=== PATIENT | female | born 1980 | race Caucasian/White ===

== ENCOUNTER → 2017-01-16 16:38 | Emergency (ER) | payer OTHER ==
[~2017-01-16 16:38] MED LIST: Sulfamethox/Trimethoprim DS 800/160* TAB PO ONE
[2017-01-16 16:54] VITALS: BP 97/68
--- NOTE | 2017-01-16 17:47 | ED ---
Amado Griffin Alfonso, scribed for Mamadou Combs MD on 01/16/17 at 1713 . Skin Complaint - HPI Summary HPI Summary: This patient is a 36 year old F presenting referred from [facility] urgent care to [facility] with a chief complaint of a skin infection at her back since one week ago , worse since yesterday. The patient rates the pain 3/10 in severity. Symptoms aggravated by transcutaneous electrical nerve stimulation. Symptoms alleviated by nothing. Patient denies fever. She reports occasional tobacco and marijuana use. - History of Current Complaint Chief Complaint: EDRashSkinAbscess Time Seen by Provider: 01/16/17 17:00 Stated Complaint: ABSCESS Hx Obtained From: Other: - referred from [facility] urgent care Onset/Duration: Started Weeks Ago - One week ago, Still Present, Worse Since - Yesterday Timing: Constant Onset Severity: Worse Since: - Yesterday Current Severity: Mild Pain Intensity: 3 Pain Scale Used: 0-10 Numeric Skin Location: Other: - back Character: Pain Aggravating Symptom(s): Other: - transcutaneous electrical nerve stimulation Alleviating Symptom(s): Nothing Associated Signs & Symptoms: Negative - Fever - Allergy/Home Medications Allergies/Adverse Reactions: Allergies Allergy/AdvReac Type Severity Reaction Status Date / Time No Known Allergies Allergy Verified 11/18/14 20:34 PMH/Surg Hx/FS Hx/Imm Hx Endocrine/Hematology History: Denies: Hx Diabetes Cardiovascular History: Denies: Hx Congestive Heart Failure, Hx Hypertension, Hx Pacemaker/ICD History: Denies: Hx Renal Disease Sensory History: Denies: Hx Hearing Aid Psychiatric History: Denies: Hx Panic Disorder Infectious Disease History: No Infectious Disease History: Denies: Traveled Outside the [place] in Last 30 Days - Family History Known Family History: Positive: Hypertension, Other - Cancer - Social History Alcohol Use: Occasionally Substance Use Type: Reports: Marijuana Smoking Status (MU): Current Some Day Smoker Type: Cigarettes Review of Systems Negative: Fever Positive: Other - skin infection at her back All Other Systems Reviewed And Are Negative: Yes Physical Exam Triage Information Reviewed: Yes Vital Signs On Initial Exam: Initial Vitals Temp Pulse Resp BP Pulse Ox 97.9 F 110 18 97/68 98 01/16/17 16:51 01/16/17 16:51 01/16/17 16:51 01/16/17 16:51 01/16/17 16:51 Vital Signs Reviewed: Yes Appearance: Positive: Well-Appearing, No Pain Distress Skin: Positive: Other - erythema about 3-4 inches in diameter left lower thoracic area with induration, and spontaneously draining abscess in 4 different areas from this area, no real fluctuance, but there is mostly induration. A total of about 3 CC of pus came out of the wound with very minimal effort. Eyes: Positive: EOMI ENT: Positive: Normal ENT inspection Neck: Positive: Nontender Respiratory/Lung Sounds: Positive: Clear to Auscultation, Breath Sounds Present Cardiovascular: Positive: RRR. Negative: Murmur Musculoskeletal: Positive: Strength/ROM Intact Neurological: Positive: Sensory/Motor Intact, Alert, Oriented to Person Place, Time, CN Intact II-III Psychiatric: Positive: Normal - [place] Coma Scale Best Eye Response: 4 - Spontaneous Best Motor Response: 6 - Obeys Commands Best Verbal Response: 5 - Oriented Diagnostics - Vital Signs Vital Signs Temp Pulse Resp BP Pulse Ox 01/16/17 16:51 97.9 F 110 18 97/68 98 - Laboratory Lab Statement: Any lab studies that have been ordered have been reviewed, and results considered in the medical decision making process. Course/Dx - Course Course Of Treatment: 36 yr old with a spontaneously draining abscess on her back. No significant flutuance but mostly induration. Would not benefit further by and I&D proceedure at this time as she is already draining out the abscess on her own, and no further pus express save the approximate 2-3 cc that came out very easily. - Diagnoses Provider Diagnoses: Abscess Discharge - Discharge Plan Condition: Good Disposition: HOME Prescriptions: Sulfamethox/Trimethoprim DS* [Bactrim DS 800/160 TAB*] 1 tab PO BID #20 tab Patient Education Materials: Abscess (ED) Referrals: Eddie Akins MD [Primary Care Provider] - 2 Days The documentation as recorded by the Amado patino Alfonso accurately reflects the service I personally performed and the decisions made by , Mamadou Combs MD.
== END | disposition home or self-care (01) ==
LOC: ED 16:38
DX: L02.91 Cutaneous abscess, unspecified (principal); Z72.0 Tobacco use
CPT/HCPCS: 90471; 99282; A9270-GY

== ENCOUNTER 2019-03-08 05:14 | Emergency (ER) | payer SELFPAY ==
--- NOTE | 2019-03-08 05:58 | ED ---
Nausea/Vomiting/Diarrhea HPI - HPI Summary HPI Summary: Pt. is a 38 y.o female who presents to the ER with concerns of intestinal worms. Pt. states that she has numerous cats that are currently being treated for round worm. Pt. is concerned she now has round worm has she has been having ongoing abd. pain, nausea and diarrhea. Pt. notes nasal congestion as well and believes when she blew her nose today a worm came out. No past medical hx. Apparently this issue has been going on for a few months and had a negative stool study. Sxs are mild in severity. No current modifying factors. - History of Current Complaint Chief Complaint: EDGeneral Stated Complaint: PT THINKS SHE HAS WORMS FROM CATS Time Seen by Provider: 03/08/19 05:36 Hx Obtained From: Patient Hx Last Menstrual Period: "A FEW DAYS AGO" Pain Intensity: 0 - Allergies/Home Medications Allergies/Adverse Reactions: Allergies Allergy/AdvReac Type Severity Reaction Status Date / Time No Known Allergies Allergy Verified 03/08/19 05:33 Home Medications: Home Medications NK [No Home Medications Reported] 03/08/19 [History Confirmed 03/08/19] PMH/Surg Hx/FS Hx/Imm Hx Previously Healthy: Yes Endocrine/Hematology History: Denies: Hx Diabetes Cardiovascular History: Denies: Hx Congestive Heart Failure, Hx Hypertension, Hx Pacemaker/ICD History: Denies: Hx Renal Disease Sensory History: Denies: Hx Hearing Aid Psychiatric History: Denies: Hx Panic Disorder - Immunization History Date of Tetanus Vaccine: unk Date of Influenza Vaccine: unk Infectious Disease History: No Infectious Disease History: Denies: Traveled Outside the [place] in Last 30 Days - Family History Known Family History: Positive: Hypertension, Other - Cancer - Social History Occupation: Unemployed Lives: With Family Alcohol Use: None Substance Use Type: Reports: None Substance Use Comment - Amount & Last Used: denies Smoking Status (MU): Never Smoked Tobacco Type: Cigarettes Review of Systems Constitutional: Negative Negative: Fever Positive: Nasal Discharge Cardiovascular: Negative Respiratory: Negative Positive: Abdominal Pain, Diarrhea, Nausea Genitourinary: Negative Musculoskeletal: Negative Skin: Negative Neurological: Negative All Other Systems Reviewed And Are Negative: Yes Physical Exam Triage Information Reviewed: Yes Vital Signs On Initial Exam: Initial Vitals Temp Pulse Resp BP Pulse Ox 98.6 F 82 20 124/78 100 03/08/19 05:16 03/08/19 05:16 03/08/19 05:16 03/08/19 05:16 03/08/19 05:16 Vital Signs Reviewed: Yes Appearance: Positive: Well-Appearing - Pt. sitting up in bed in NAD. Wearing heavy, smudged makeup. Skin: Positive: Warm, Dry Head/Face: Positive: Normal Head/Face Inspection Eyes: Positive: Normal, EOMI, ELIZABETH, Conjunctiva Clear ENT: Positive: Pharynx normal, TMs normal. Negative: Nasal congestion, Nasal drainage, Tonsillar swelling, Tonsillar exudate Neck: Positive: Supple Respiratory/Lung Sounds: Positive: Clear to Auscultation, Breath Sounds Present. Negative: Rales, Rhonchi, Wheezes Cardiovascular: Positive: Normal, RRR Abdomen Description: Positive: Nontender, Soft Neurological: Positive: Normal, CN Intact II-III Psychiatric: Positive: Affect/Mood Appropriate Procedures - Sedation Patient Received Moderate/Deep Sedation with Procedure: No Diagnostics - Vital Signs Vital Signs Temp Pulse Resp BP Pulse Ox 03/08/19 05:16 98.6 F 82 20 124/78 100 - Laboratory Lab Statement: Any lab studies that have been ordered have been reviewed, and results considered in the medical decision making process. Naus/Vom/Diarrhea Course/Dx - Course Course Of Treatment: Pt. presenting for evaluation of possible round worm infection. Pt. well appearing. Benign abd. exam without reproducible pain. Afebrile. Pt. states she believes she blew a worm out of her nose and brought the tissue with her. Examined tissue and there is a small amount of blood tinged clear mucus without any appreciable worm. Pt. unable to give stool sample in ED for O and P. Will dc home to [facility] with PCP today for outpt. stool sample and treatment if indicated. Will return for new or worsening sxs. Pt. understands and agrees with plan. - Differential Dx/Diagnosis Provider Diagnosis: Abdominal pain, Diarrhea Condition At Discharge: Good Discharge ED - Sign-Out/Discharge Documenting (check all that apply): Patient Departure - Discharge Plan Condition: Good Disposition: HOME Patient Education Materials: Acute Diarrhea (ED), Acute Abdominal Pain (ED) Referrals: Eddie Akins MD [Primary Care Provider] - Additional Instructions: Please call your PCP today for a close follow up appointment and for out patient stool culture for further evaluation Return to ER for severe abdominal pain, vomiting, fever, or if concerned - Billing Disposition and Condition Condition: GOOD Disposition: Home
[2019-03-08 06:57] VITALS: BP 0/0
== END 2019-03-08 06:56 | disposition home or self-care (01) ==
LOC: ED 05:14
DX: R10.9 Unspecified abdominal pain (principal); R19.7 Diarrhea, unspecified
CPT/HCPCS: 99282

== ENCOUNTER 2019-03-14 05:27 | Emergency (ER) | payer SELFPAY ==
--- NOTE | 2019-03-14 05:44 | ED ---
Complex/Multi-Sys Presentation - History Of Current Complaint Chief Complaint: EDGeneral Time Seen by Provider: 03/14/19 05:42 - Allergies/Home Medications Allergies/Adverse Reactions: Allergies Allergy/AdvReac Type Severity Reaction Status Date / Time No Known Allergies Allergy Verified 03/14/19 05:35 PMH/Surg Hx/FS Hx/Imm Hx Endocrine/Hematology History: Denies: Hx Diabetes Cardiovascular History: Denies: Hx Congestive Heart Failure, Hx Hypertension, Hx Pacemaker/ICD History: Denies: Hx Renal Disease Sensory History: Denies: Hx Hearing Aid Psychiatric History: Denies: Hx Panic Disorder - Immunization History Date of Tetanus Vaccine: unk Date of Influenza Vaccine: unk Infectious Disease History: No Infectious Disease History: Denies: Traveled Outside the [place] in Last 30 Days - Family History Known Family History: Positive: Hypertension, Other - Cancer - Social History Alcohol Use: None Substance Use Type: Reports: None Substance Use Comment - Amount & Last Used: denies Smoking Status (MU): Never Smoked Tobacco Type: Cigarettes Physical Exam Vital Signs On Initial Exam: Initial Vitals Temp Pulse Resp BP Pulse Ox 99.0 F 93 15 122/74 99 03/14/19 05:28 03/14/19 05:28 03/14/19 05:28 03/14/19 05:28 03/14/19 05:28 Diagnostics - Vital Signs Vital Signs Temp Pulse Resp BP Pulse Ox 03/14/19 05:28 99.0 F 93 15 122/74 99 - Laboratory Lab Statement: Any lab studies that have been ordered have been reviewed, and results considered in the medical decision making process. Discharge ED - Discharge Plan Referrals: Eddie Akins MD [Primary Care Provider] -
--- NOTE | 2019-03-14 06:07 | ED ---
Complex/Multi-Sys Presentation - HPI Summary HPI Summary: 38-year-old female presents to the emergency department today with chief complaint of "I think I have parasites in my nose". Patient states one of her cats had a Giardia infection and is worried she may have one as well. She states for the last week she has had symptoms of tingling in her "sinuses and ears". She states she states sure about parasites and is concerned she may have an infection. She denies fever, chest pain, shortness of breath, abdominal pain, pain with urination, confusion, headache, changes in vision, diarrhea, blood per rectum. - History Of Current Complaint Chief Complaint: EDGeneral Time Seen by Provider: 03/14/19 05:42 Hx Obtained From: Patient Onset/Duration: Gradual Onset, Lasting Weeks Timing: Constant Severity Currently: Mild Severity Initially: Mild Associated Signs And Symptoms: Negative: Decreased Responsiveness, Confusion, Agitation, Dizziness, Weakness, Syncope, Headache, SOB, Cough, Wheezing, Hemoptysis, Chest Pain, Palpitations, Edema, Nausea, Vomiting, Diarrhea, Abdominal Pain, Back Pain, Dysuria, Hematemesis, Melena, Decreased Oral Intake, Fever, Diaphoresis, Immunocompromised, Anticoagulation Therapy, Recent Medication Changes, Indwelling Right Of Way Supervisor - Allergies/Home Medications Allergies/Adverse Reactions: Allergies Allergy/AdvReac Type Severity Reaction Status Date / Time No Known Allergies Allergy Verified 03/14/19 05:35 PMH/Surg Hx/FS Hx/Imm Hx Endocrine/Hematology History: Denies: Hx Diabetes Cardiovascular History: Denies: Hx Congestive Heart Failure, Hx Hypertension, Hx Pacemaker/ICD History: Denies: Hx Renal Disease Sensory History: Denies: Hx Hearing Aid Psychiatric History: Denies: Hx Panic Disorder - Immunization History Date of Tetanus Vaccine: unk Date of Influenza Vaccine: unk Infectious Disease History: No Infectious Disease History: Denies: Traveled Outside the [place] in Last 30 Days - Family History Known Family History: Positive: Hypertension, Other - Cancer - Social History Alcohol Use: None Substance Use Type: Reports: None Substance Use Comment - Amount & Last Used: denies Smoking Status (MU): Never Smoked Tobacco Type: Cigarettes Review of Systems Constitutional: Negative Eyes: Negative ENT: Negative Cardiovascular: Negative Respiratory: Negative Gastrointestinal: Negative Genitourinary: Negative Musculoskeletal: Negative Skin: Negative Neurological: Negative Positive: Anxious All Other Systems Reviewed And Are Negative: Yes Physical Exam Triage Information Reviewed: Yes Vital Signs On Initial Exam: Initial Vitals Temp Pulse Resp BP Pulse Ox 99.0 F 93 15 122/74 99 03/14/19 05:28 03/14/19 05:28 03/14/19 05:28 03/14/19 05:28 03/14/19 05:28 Vital Signs Reviewed: Yes Appearance: Positive: Well-Appearing, No Pain Distress, Well-Nourished Skin: Positive: Warm, Skin Color Reflects Adequate Perfusion Head/Face: Positive: Normal Head/Face Inspection Eyes: Positive: EOMI, ELIZABETH ENT: Positive: Hearing grossly normal, Pharynx normal, TMs normal. Negative: Sinus tenderness Neck: Positive: Nontender Respiratory/Lung Sounds: Positive: Clear to Auscultation, Breath Sounds Present Cardiovascular: Positive: RRR, S1, S2 Abdomen Description: Positive: Nontender, Soft. Negative: Distended, Guarding Bowel Sounds: Positive: Absent - Normoactive bowel sounds Musculoskeletal: Positive: Normal Neurological: Positive: Sensory/Motor Intact, Alert, Oriented to Person Place, Time, Normal Gait, Facial Symmetry, Speech Normal. Negative: Slurred Speech Psychiatric: Positive: Anxious AVPU Assessment: Alert Procedures - Sedation Patient Received Moderate/Deep Sedation with Procedure: No Diagnostics - Vital Signs Vital Signs Temp Pulse Resp BP Pulse Ox 03/14/19 05:28 99.0 F 93 15 122/74 99 - Laboratory Lab Statement: Any lab studies that have been ordered have been reviewed, and results considered in the medical decision making process. Complex Multi-Symp Course/Dx Course Of Treatment: Patient was evaluated in the emergency department for possible parasitic infection. Patient was seen and examined. As the patient was asymptomatic it was determined no laboratory studies or imaging was required for further evaluation of the patient. 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 She was told to return to the emergency department immediately if she developed any signs or symptoms of Giardia infection including abdominal pain and diarrhea. She is told to follow up with her primary care provider if she desired further evaluation and management of her symptoms. Patient agreed to this plan. - Diagnoses Differential Diagnoses/HQI/PQRI: Other - Acute otitis media, perforated TM, Phobia Provider Diagnoses: Ear ache Discharge ED - Sign-Out/Discharge Documenting (check all that apply): Patient Departure - Discharge Plan Condition: Stable Disposition: HOME Referrals: Eddie Akins MD [Primary Care Provider] - 2 Days Additional Instructions: You were seen in the emergency department today with concern for parasitic infection. After physical exam was determined there were no parasites in your sinuses or inner ear. Symptoms of Giardia include abdominal pain and profuse diarrhea. Please return to emergency department immediately should you develop any new or worsening symptoms. If you have further concerns please follow up with your primary care doctor for further evaluation and management of your symptoms. - Billing Disposition and Condition Condition: STABLE Disposition: Home
[2019-03-14 06:29] VITALS: BP 0/0
== END 2019-03-14 06:27 | disposition home or self-care (01) ==
LOC: ED 05:27
DX: H92.09 Otalgia, unspecified ear (principal)
CPT/HCPCS: 99282

== ENCOUNTER 2019-03-18 15:53 | Emergency (ER) | payer SELFPAY ==
--- NOTE | 2019-03-18 16:28 | ED ---
Throat Pain/Nasal Congestion - HPI Summary HPI Summary: 38 year old female presents to the ED with a chief complaint of sinus discomfort for several weeks that has gradually gotten worse. Patient reports subjective fever, agitation, nausea, neck stiffness, head pressure, congestion, loss of appetite and rhinorrhea, all worsened in the last week. Patient has many cats at home. She also has history of allergies. She does a nasal drip daily using hot tap water. No history of DM. - History of Current Complaint Chief Complaint: EDGeneral Time Seen by Provider: 03/18/19 16:04 Hx Obtained From: Patient Onset/Duration: Lasting Weeks, Still Present Severity: Mild Associated Signs And Symptoms: Positive: Sinus Discomfort, Nasal Discharge Cough: None - Allergies/Home Medications Allergies/Adverse Reactions: Allergies Allergy/AdvReac Type Severity Reaction Status Date / Time No Known Allergies Allergy Verified 03/18/19 16:01 PMH/Surg Hx/FS Hx/Imm Hx Endocrine/Hematology History: Denies: Hx Diabetes Cardiovascular History: Denies: Hx Congestive Heart Failure, Hx Hypertension, Hx Pacemaker/ICD History: Denies: Hx Renal Disease Sensory History: Denies: Hx Hearing Aid Psychiatric History: Denies: Hx Panic Disorder - Immunization History Date of Tetanus Vaccine: unk Date of Influenza Vaccine: unk Infectious Disease History: No Infectious Disease History: Denies: Traveled Outside the [place] in Last 30 Days - Family History Known Family History: Positive: Hypertension, Other - Cancer - Social History Alcohol Use: None Substance Use Type: Reports: None Substance Use Comment - Amount & Last Used: denies Smoking Status (MU): Never Smoked Tobacco Type: Cigarettes Review of Systems Positive: Fever - Subjective, Other - loss of appetite Positive: Nasal Discharge, Other - sinus discomfort, congestion Positive: Nausea Positive: Myalgia - neck pain Positive: Headache - pressure Positive: Other - agitated All Other Systems Reviewed And Are Negative: Yes Physical Exam - Summary Physical Exam Summary: Constitutional: Well-developed, Well-nourished, Alert. (-) Distressed Skin: Warm, Dry HENT: Normocephalic; Atraumatic Eyes: Conjunctiva normal Neck: Musculoskeletal ROM normal neck. (-) JVD, (-) Stridor, (-) Tracheal deviation Cardio: Rhythm regular, rate normal, Heart sounds normal; Intact distal pulses; The pedal pulses are 2+ and symmetric. Radial pulses are 2+ and symmetric. (-) Murmur Pulmonary/Chest wall: Effort normal. (-) Respiratory distress, (-) Wheezes, (-) Rales Abd: Soft, (-) tenderness, (-) Distension, (-) Guarding, (-) Rebound Musculoskeletal: (-) Edema Lymph: (-) Cervical adenopathy Neuro: Alert, Oriented x3 Psych: Mood and affect Normal Triage Information Reviewed: Yes Vital Signs On Initial Exam: Initial Vitals Temp Pulse Resp BP Pulse Ox 99.1 F 81 17 147/66 100 03/18/19 15:54 03/18/19 15:54 03/18/19 15:54 03/18/19 15:54 03/18/19 15:54 Vital Signs Reviewed: Yes Procedures - Sedation Patient Received Moderate/Deep Sedation with Procedure: No Diagnostics - Vital Signs Vital Signs Temp Pulse Resp BP Pulse Ox 03/18/19 15:54 99.1 F 81 17 147/66 100 - Laboratory Result Diagrams: 03/18/19 16:37 03/18/19 16:37 Lab Statement: Any lab studies that have been ordered have been reviewed, and results considered in the medical decision making process. EENT Course/Dx - Course Course Of Treatment: 38 year old female presents to the ED with a chief complaint of sinus discomfort for several weeks that has gradually gotten worse. Patient reports subjective fever, agitation, nausea, neck stiffness, head pressure, congestion, loss of appetite and rhinorrhea, all worsened in the last week. Patient has many cats at home. She also has history of allergies. She does a nasal drip daily using hot tap water. No history of DM. Patient asks for a lumbar puncture because she thinks she is infected by an amoeba. I discussed with her the extremely low chance of that being the case. Physical exam is normal. Laboratory results reveal MCH 32 and potassium 3.4. Diagnosis is sinusitis. Patient is feeling better and will be discharged home, follow up with PCP within 3 days. Patient was told to return to the ED for new or worsened symptoms. Pt understands and agrees with this plan. - Diagnoses Provider Diagnoses: Sinusitis Discharge ED - Sign-Out/Discharge Documenting (check all that apply): Patient Departure - dc - Discharge Plan Condition: Stable Disposition: HOME Patient Education Materials: Sinusitis (ED) Referrals: Eddie Akins MD [Primary Care Provider] - Additional Instructions: Follow up with your primary care provider in 2-3 days. Return to the Emergency Department for new symptoms. - Attestation Statements Document Initiated by Caryl: Yes Documenting Scribe: Jacob Spann Provider For Whom Caryl is Documenting (Include Credential): Yuriy Harvey DO Scribe Attestation: IJacob, scribed for Yuriy Harvey DO on 03/18/19 at 1838. Status of Scribe Document: Ready
[2019-03-18 16:50] LABS: ABS Eosinophils 0.1 10^3/ul (0-0.6); ABS Lymphocytes 1.5 10^3/ul (1.0-4.8); ABS Monocytes 0.4 10^3/ul (0-0.8); ABS Neutrophils 4.9 10^3/ul (1.5-7.7); Eosinophil % 0.9 %; Hematocrit 39 % (35-47); Hemoglobin 13.8 g/dL (12.0-16.0); Lymphocyte % 22.1 %; Mean Corpuscular HGB Conc 35 g/dL (31-36); Mean Corpuscular Hemoglobin 32 pg (27-31); Mean Corpuscular Volume 90 fL (80-97); Mean Platelet Volume 8.1 fL (7.4-10.4); Platelet Count 242 10^3/uL (150-450); Red Blood Count 4.34 10^6 /uL (3.70-4.87); Red Cell Distribution Width 13 % (10-15); White Blood Count 6.9 10^3/uL (3.5-10.8)
[2019-03-18 17:05] LABS: Albumin 4.6 g/dL (3.2-5.2); Albumin/Globulin Ratio 1.8 (1-3); BUN/Creatinine Ratio 13.7 (8-20); CRP High Sensitivity 0.35 mg/L (<2.00); Calcium 9.9 mg/dL (8.6-10.3); EGFR African American 109.2 (>60); EGFR Non-African American 90.2 (>60); Globulin 2.5 g/dL (2-4); Potassium 3.4 mmol/L (3.5-5.0); Total Bilirubin 0.5 mg/dL (0.2-1.0); Total Protein 7.1 g/dL (6.4-8.9)
[2019-03-18 18:25] LABS: Erythrocyte Sed Rate 5 mm/Hr (0-19)
[2019-03-18 18:39] VITALS: BP 131/41
== END 2019-03-18 18:37 | disposition home or self-care (01) ==
LOC: ED 15:53
DX: J32.9 Chronic sinusitis, unspecified (principal)
CPT/HCPCS: 36415; 80053; 85025; 85652; 86141; 99282

== ENCOUNTER 2019-07-01 11:28 | Emergency (ER) | payer SELFPAY ==
--- OUTSIDE RECORDS SUMMARY | 2019-07-01 11:42 | XMS REPORT | Continuity of Care Document ---
:1980 External Reference #:[id number] Author Name Eddie Akins M.D. Address [address] [place] [address] Problems Description No Information Available Social History Type Date Description Comments Sex Unknown Tobacco Use Start: Unknown Never Smoked Cigarettes ETOH Use Rarely consumes alcohol Recreational Drug Use Denies Drug Use Recreational Drug Use Former Drug User Exercise Type/Frequency exercises sporadically Seat Belt/Car Seat always uses seat belt Allergies, Adverse Reactions, Alerts Description No Known Drug Allergies Medications Active Medications SIG Qnty Indications Ordering Provider Date Ventolin HFA 2 puffs every 4 1units Dora Lewis, 09/09/2013 hours as needed M.D., R.D. 108(90Base) mcg/Act Aerosol Vitamin B Complex Nasrin Gonsalves, 02/02/2012 [employer] PERSON-C Herbal Immunity Unknown Supplement Multi Vitamin 1 by mouth every Unknown Tablets day [place] 3 1 by mouth every Unknown 1000mg Capsules day History Medications Latuda 1 by mouth every 30tabs Eddie Akins, 05/26/2019 - 20mg Tablets night. M.D. 06/14/2019 Doxycycline 1 by mouth twice 11caps Eddie Akins, 04/12/2019 - Monohydrate a day for 5 1/2 M.D. 06/14/2019 100mg days (will Capsules replace 3 lost pills and add 4 days) Amoxicillin/Clavulan 1 by mouth twice 10tabs J32.9 Eddie Akins, 03/22/2019 - ate Potassium a day x 5 days M.D. 04/04/2019 875-125mg Tablets Amoxicillin/Clavulan 1 by mouth twice 10tabs S51.801A Eddie Akins, 2018 - ate Potassium a day 5 days M.D. 02/21/2019 875-125mg Tablets Medications Administered in Office Medication SIG Qnty Indications Ordering Provider Date TB,Intradermal (PPD, [place], 12/02/2002 [place]) [facility] Injection Pediatric Hepatitis B [place], 02/25/1999 Vaccine (11-19 Yrs) F.N.P.C[facility] Injection Pediatric Hepatitis B Christina Reed M.D. 12/12/1996 Vaccine (11-19 Yrs) Injection Immunizations CPT Code Status Date Vaccine Lot # 74937 Given 03/26/2017 Tdap (Adacel) [id number] 19867 Given 11/23/2000 Meningococcal Polysaccharide Vaccine 20188 Given 01/16/2000 Varicella (Chicken Pox) Vaccine 93155 Given 01/16/2000 Hep B Vaccine, Ped/Adol Dose 3 Dose (Engerix or Recombivax) 62840 Given 02/25/1999 MMR (Measles,Mumps,Rubella) 67944 Given 12/12/1996 DT (Adult) 10696 Given 03/27/1988 DPT 89364 Given 11/30/1987 DPT 83701 Given 10/15/1987 DPT 88547 Given 10/14/1987 Opv (Poliovirus,Oral) 34506 Given 11/16/1985 Opv (Poliovirus,Oral) 15354 Given 10/12/1985 MMR (Measles,Mumps,Rubella) 51003 Given 05/11/1985 Opv (Poliovirus,Oral) 53178 Given 07/29/1984 Opv (Poliovirus,Oral) 65024 Refused 04/26/2019 Influenza Virus Vaccine, Quadrivalent, 3 Yr > Quad , Preserv Free 60570 Refused 03/22/2019 Influenza Virus Vaccine, Quadrivalent, 3 Yr > Quad , Preserv Free 46365 Refused 06/23/2016 Influenza Virus Vaccine, Quadrivalent, 3 Yr > Quad , Preserv Free Vital Signs Date Vital Result Comment 06/14/2019 10:24am Weight 123.00 lb Weight 55.793 kg BP Systolic 110 mmHg BP Diastolic 60 mmHg Heart Rate 82 /min Body Temperature 98.4 F Respiratory Rate 16 /min O2 % BldC Oximetry 98 % 05/26/2019 4:40pm Weight 118.00 lb Weight 53.525 kg BP Systolic 108 mmHg BP Diastolic 68 mmHg Heart Rate 76 /min Body Temperature 98.9 F O2 % BldC Oximetry 98 % Results Test Acquired Date Facility Test Result H/L Range Note CBC Auto 03/18/2019 [facility] White Blood 6.9 10^3/ uL Normal 3.5-10.8 Diff [phone] Count Red Blood Count 4.34 10^6/uL Normal 3.70-4.87 Hemoglobin 13.8 g/dL Normal 12.0-16.0 Hematocrit 39 % Normal 35-47 Mean Corpuscular Volume 90 fL Normal 80-97 Mean Corpuscular Hemoglobin 32 pg High 27-31 Mean Corpuscular HGB Conc 35 g/dL Normal 31-36 Red Cell Distribution Width 13 % Normal 10-15 Platelet Count 242 10^3/uL Normal 150-450 Mean Platelet Volume 8.1 fL Normal 7.4-10.4 Abs Neutrophils 4.9 10^3/uL Normal 1.5-7.7 Abs Lymphocytes 1.5 10^3/uL Normal 1.0-4.8 Abs Monocytes 0.4 10^3/uL Normal 0-0.8 Abs Eosinophils 0.1 10^3/uL Normal 0-0.6 Abs Basophils 0.0 10^3/uL Normal 0-0.2 Abs Nucleated RBC 0.0 10^3/uL Granulocyte % 71.5 % Lymphocyte % 22.1 % Monocyte % 5.2 % Eosinophil % 0.9 % Basophil % 0.3 % Nucleated Red Blood Cells % 0.0 Laboratory test 03/18/2019 [facility] Erythrocyte Sed 5 mm/Hr Normal 0-19 finding [phone] Rate Comp Metabolic 03/18/2019 [facility] Sodium 138 Normal 135-145 Panel [phone] mmol/L Potassium 3.4 mmol/L Low 3.5-5.0 Chloride 103 mmol/L Normal 101-111 Co2 Carbon Dioxide 26 mmol/L Normal 22-32 Anion Gap 9 mmol/L Normal 2-11 Glucose 103 mg/dL High 70-100 Blood Urea Nitrogen 10 mg/dL Normal 6-24 Creatinine 0.73 mg/dL Normal 0.51-0.95 BUN/Creatinine Ratio 13.7 Normal 8-20 Calcium 9.9 mg/dL Normal 8.6-10.3 Total Protein 7.1 g/dL Normal 6.4-8.9 Albumin 4.6 g/dL Normal 3.2-5.2 Globulin 2.5 g/dL Normal 2-4 Albumin/Globulin Ratio 1.8 Normal 1-3 Total Bilirubin 0.50 mg/dL Normal 0.2-1.0 Alkaline Phosphatase 43 U/L Normal 34-104 Alt 16 U/L Normal 7-52 Ast 18 U/L Normal 13-39 Egfr Non- 90.2 >60 Egfr 109.2 >60 1 Laboratory test 03/18/2019 [facility] CRP High 0.35 mg/L <2.00 finding [phone] Sensitivity O P: 03/14/2019 [facility] O P: SEE RESULT 2 Giardia/Cryptos [phone] Giardia/Cryptosp BELOW por Screen or Screen Ova & Parasites 03/14/2019 [facility] Parasitic Exam, See Comment 3, 4 Full [phone] Result 1 Because ethnic data is not always readily available, this report includes an eGFR for both -Americans and non- Americans. The National Kidney Disease Education Program (NKDEP) does not endorse the use of the MDRD equation for patients that are not between the ages of 18 and 70, are , have extremes of body size, muscle mass, or nutritional status, or are non- or non-. According to the National Kidney Foundation, irrespective of diagnosis, the stage of the disease is based on the level of kidney function: Stage Description GFR(mL/min/1.73 m(2)) 1 Kidney damage with normal or decreased GFR 90 2 Kidney damage with mild decrease in GFR 60-89 3 Moderate decrease in GFR 30-59 4 Severe decrease in GFR 15-29 5 Kidney failure <15 (or dialysis) 2 SEE RESULT BELOW Name: MARYAM KAYE : [address]: Amie Miller NP Acct: [id number] Unit: [id number] AGE: 38 Location: [facility] Re03/14/19 SEX: F Status: REG REF SPEC: [id number] SANDEE: 03/14/[address]: Amie Miller NP REQ: [id number] RECD: 03/14/19 STATUS: YUDI STRONG DR: Eddie Akins MD _ SOURCE: STOOL SPDESC: ORDERED: O P: Giar/Crypt Procedure Result Reported Site O P: Giardia/Cryptospor Screen Final 03/15/19- 1202 ML Organism 1 Neg Cryptosporidium/Giardia Giardia and cryptosporidium antigen testing performed by enzyme immunoassay. Specimen has been forwarded to reference lab for microscopic parasite examination. TEST LIMITATIONS: As with all diagnostic procedures, the results obtained should be used in conjunction with other clinical information available to the physician, including confirmation by another method. Negative results can occur in samples containing antigen below lower limits of detection of the assay. One negative specimen does not rule out the possibility of a parasitic infection. To improve detection it is recommended that three specimens be collected on separate days over a period of not more than seven days. The use of colonic washes, aspirates or other diluted sample types has not been established and could affect the performance of the assay. Stool samples contaminated with an oily or particulate base (eg. Barium, mineral oil etc.) could interfere with the test and are not recommended. CONTINUED ON NEXT PAGE DEPARTMENT OF PATHOLOGY, [facility] [employer] [place] [address] Ovidio Gibson M.D. Director [facility] # [id number] Specimen: [id number] Collected: 03/14/19 Received: 03/14/19 (Continued) Procedure Result Reported Site O P: Giardia/Cryptospor Screen Final (continued) 03/15/191201 * ML - Main Lab . END OF REPORT DEPARTMENT OF PATHOLOGY, [facility] [employer] [place], [place] [address] Ovidio Gibson M.D. Director [facility] # [id number] 7 3518.LOOKING FOR NAGLERIA FOWLERI 4 SOURCE: STOOL PARASITIC EXAMINATION FINAL No parasites seen. Cryptosporidium, Cyclospora, and microsporidia are not readily detected by this method. Single negative specimen does not rule out parasitic infection. Test Performed by: [facility] - [address] [address] Sports Lawyer: Gee Mcclain M.D. Ph.D.; CLIA# [id number] Procedures Description No Information Available Medical Devices Description No Information Available Encounters Type Date Location Provider Dx Diagnosis Office Visit 05/12/2019 Main Office Eddie Akins M.D. J32.9 Chronic sinusitis, 11:45a unspecified Office Visit 04/26/2019 Bushra Akins M.D. J01.90 Acute sinusitis, 2:45p unspecified Office Visit 04/04/2019 Bushra Akins M.D. J32.9 Chronic sinusitis, 2:00p unspecified Office Visit 03/22/2019 Bushra Akins M.D. Z00.00 Encntr for general 1:15p adult medical exam w/o abnormal findings J32.9 Chronic sinusitis, unspecified Office Visit 02/21/2019 2:45p Ranger Tera Akins, S51.801D Unspecified open M.D. wound of right forearm, subs encntr S00.86xA Insect bite (nonvenomous) of other part of head, init encntr Office Visit 02/09/2019 3:45p Main Office Eddie Akins S51.801A Unspecified open M.D. wound of right forearm, initial encounter W55.03xA Scratched by cat, initial encounter Office Visit 01/27/2019 3:30p Main Office Eddie Akins M.D. H92.01 Otalgia , right ear Assessments Date Code Description Provider 06/14/2019 J32.9 Chronic sinusitis, marianne Akins M.D. 05/26/2019 J32.9 Chronic sinusitis, unspecified Eddie Akins M.D. 05/12/2019 J32.9 Chronic sinusitis, unspecified Eddie Akins M.D. 04/26/2019 J01.90 Acute sinusitis, marianne Akins M.D. 04/04/2019 J32.9 Chronic sinusitis, unspecified Eddie Akins M.D. 03/22/2019 Z00.00 Encounter for general adult medical examination Eddie Akins M.D. without abnormal findings 03/22/2019 J32.9 Chronic sinusitis, unspecified Eddie Akins M.D. 02/21/2019 S51.801D Unspecified open wound of right forearm, Eddie Akins M.D. subsequent encounter 02/21/2019 S00.86xA Insect bite (nonvenomous) of other part of head, Eddie Akins M.D. initial encounter 02/09/2019 S51.801A Unspecified open wound of right forearm, initial Eddie Akins M.D. encounter 02/09/2019 W55.03xA Scratched by cat, initial encounter Eddie Akins M.D. 01/27/2019 H92.01 Otalgia, right ear Eddie Akins M.D. Plan of Treatment 05/26/2019 - Eddie Akins M.D.J32.9 Chronic sinusitis, unspecifiedFollow up:3 weeks.Recommendations:The next steps: 1. Get on the waiting list at [facility] to see Clare Phan. 2. Get the medicaid application done. Functional Status Functional Condition Comment Date Status Soft Contacts Active Mental Status Description No Information Available Referrals Refer to Dr Reason for Referral Status Appt Date Luis Alfredo Holden Referral to Dr. Hodlen for further evaluation. Created - - Please contact Pt to schedule appt. Pt is currently self pay. - - Please fax appointment date/time to [facility], [phone]. [address], [facility] [place] [address] [phone]
--- OUTSIDE RECORDS SUMMARY | 2019-07-01 11:42 | XMS REPORT | Continuity of Care Document ---
:1980 External Reference #:[id number] Author Name Eddie Akins M.D. 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 Unknown Supplement Multi Vitamin 1 by mouth every Unknown Tablets day [place] 3 1 by mouth every Unknown 1000mg [...] CPT Code Status Date Vaccine Lot # [id number] Given 03/26/2017 Tdap (Adacel) [id number] 47414 Given 11/23/2000 Meningococcal Polysaccharide Vaccine 76918 Given 01/16/2000 Varicella (Chicken Pox) Vaccine 35351 Given 01/16/2000 Hep B Vaccine, Ped/Adol Dose 3 Dose (Engerix or Recombivax) 80715 Given 02/25/1999 MMR (Measles,Mumps,Rubella) 39262 Given 12/12/1996 DT (Adult) 56781 Given 03/27/1988 DPT 66928 Given 11/30/1987 DPT 27318 Given 10/15/1987 DPT 57965 Given 10/14/1987 Opv (Poliovirus,Oral) 61873 Given 11/16/1985 Opv (Poliovirus,Oral) 63183 Given 10/12/1985 MMR (Measles,Mumps,Rubella) 58737 Given 05/11/1985 Opv (Poliovirus,Oral) 67514 Given 07/29/1984 Opv (Poliovirus,Oral) 30912 Refused 04/26/2019 Influenza Virus Vaccine, Quadrivalent, 3 Yr > Quad , Preserv Free 91874 Refused 03/22/2019 Influenza Virus Vaccine, Quadrivalent, 3 Yr > Quad , Preserv Free 27626 Refused 06/23/2016 Influenza Virus Vaccine, Quadrivalent, 3 [...] Result H/L Range Note CBC Auto 03/18/2019 [facility] White Blood 6.9 10^3/ uL Normal 3.5-10.8 Diff [phone] Count Red Blood Count 4.34 10^6/uL Normal [...] Blood Cells % 0.0 Laboratory test 03/18/2019 [facility] Erythrocyte Sed 5 mm/Hr Normal 0-19 finding [phone] Rate Comp Metabolic 03/18/2019 [facility] Sodium 138 Normal 135-145 Panel [phone] mmol/L Potassium 3.4 mmol/L Low 3.5-5.0 Chloride [...] Egfr 109.2 >60 1 Laboratory test 03/18/2019 [facility] CRP High 0.35 mg/L <2.00 finding [phone] Sensitivity O P: 03/14/2019 [facility] O P: SEE RESULT 2 Giardia/Cryptos [phone] Giardia/Cryptosp BELOW por Screen or Screen Ova & Parasites 03/14/2019 [facility] Parasitic Exam, See Comment 3, 4 Full [phone] Result 1 Because ethnic data is not [...] [address]: Amie Miller NP Acct: [id number] Unit: [id number] AGE: 38 Location: [facility] Re03/14/19 SEX: F Status: REG REF SPEC: [id number] SANDEE: 03/14/[address]: Amie Miller NP REQ: [id number] RECD: 03/14/19 STATUS: YUDI STRONG DR: Eddie [...] ON NEXT PAGE DEPARTMENT OF PATHOLOGY, [facility] [employer] [place] [address] Ovidio Gibson M.D. Director [facility] # [id number] Specimen: [id number] Collected: 03/14/19 Received: 03/14/19 (Continued) Procedure Result Reported Site O P: Giardia/Cryptospor Screen Final (continued) 03/15/191201 * ML - Main Lab . END OF REPORT DEPARTMENT OF PATHOLOGY, [facility] [employer] [place], [place] [address] Ovidio Gibson M.D. Director [facility] # [id number] 7 7373.LOOKING FOR NAGLERIA FOWLERI 4 SOURCE: STOOL PARASITIC EXAMINATION FINAL No parasites seen. Cryptosporidium, Cyclospora, and microsporidia are not readily detected by this method. Single negative specimen does not rule out parasitic infection. Test Performed by: [facility] - [address] [address] [employer]: Gee Mcclain M.D. Ph.D.; CLIA# [id number] Procedures Description No Information Available Medical Devices [...] Chronic sinusitis, unspecified Office Visit 02/21/2019 2:45p Deport Tera Akins, S51.801D Unspecified open M.D. wound [...] ear Eddie Akins M.D. Plan of Treatment 06/14/2019 - Eddie Akins M.D.J32.9 Chronic sinusitis, unspecifiedComments:She has not started antipsychotic.Sx do seem better.She is starting abx through her dentist so we will hold on CT scanning. Functional Status Functional Condition Comment Date Status Soft Contacts Active Mental Status Description No Information Available Referrals Refer to Dr Reason for Referral Status Appt Date Luis Alfredo Holden Referral to Dr. Holden for further evaluation. Created - - Please contact Pt to schedule appt. Pt is currently self pay. - - Please fax appointment date/time to [facility], [phone]. [address], [place] [address] [phone]
--- OUTSIDE RECORDS SUMMARY | 2019-07-01 11:42 | XMS REPORT | Continuity of Care Document ---
:1980 External Reference #:[id number] Author Name Luis Alfredo Holden M.D. (transmitted by agent of provider Charlette Fermin ) Address [address] [place] [address] Care Team Providers Name Role Phone Eddie Akins M.D. 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 Problems Description No Information Available Social History Type Date Description Comments Sex Unknown Tobacco Use Start: Unknown End: Patient is a former smoker smoked x 2 months in Unknown 2016 Smoking Status Reviewed: 06/07/19 Patient is a former smoker smoked x 2 months in 2016 Allergies, Adverse Reactions, Alerts Description No Known Drug Allergies Medications Description No Active Medications Immunizations Description No Information Available Vital Signs Date Vital Result Comment 06/07/2019 1:16pm Height 63 inches 5'3" Weight 120.38 lb Heart Rate 92 /min BP Systolic Sitting 98 mmHg BP Diastolic Sitting 60 mmHg Respiratory Rate 14 /min Body Temperature 98.2 F O2 % BldC Oximetry 99 % BMI (Body Mass Index) 21.3 kg/m2 Results Description No Information Available Procedures Description No Information Available Medical Devices Description No Information Available Encounters Description No Information Available Assessments Date Code Description Provider 06/07/2019 Z11.4 Encounter for screening for human Luis Alfredo Holden M.D. immunodeficiency virus [HIV] Plan of Treatment No Information Available Functional Status Description No Information Available Mental Status Description No Information Available Referrals Description No Information Available
--- OUTSIDE RECORDS SUMMARY | 2019-07-01 11:42 | XMS REPORT | Continuity of Care Document ---
:1980 External Reference #:[id number] Author Name Eddie Akins M.D. (transmitted by agent of provider Salina Hill) Address [address] [place] [address] Problems Description No Information Available Social History [...] 1units Dora Lewis, 09/09/2013 hours as needed M.Timmy, R.DLuli 108(90Base) mcg/Act Aerosol Vitamin B Complex Nasrin Gonsalves, 02/02/2012 [employer] Herbal Immunity Unknown Supplement Multi Vitamin 1 by mouth every Unknown Tablets day [place] 3 1 by mouth every Unknown 1000mg Capsules day Amoxicillin/Clavulana Take One Tablet Unknown te Potassium By Mouth 875-125mg Immediately, Tablets Take 1 Tablet By Mouth Two Times Daily Until Gone History Medications Latuda 1 by mouth every [...] CPT Code Status Date Vaccine Lot # 26477 Given 03/26/2017 Tdap (Adacel) [id number] 93762 Given 11/23/2000 Meningococcal Polysaccharide Vaccine 96636 Given 01/16/2000 Varicella (Chicken Pox) Vaccine 54733 Given 01/16/2000 Hep B Vaccine, Ped/Adol Dose 3 Dose (Engerix or Recombivax) 55109 Given 02/25/1999 MMR (Measles,Mumps,Rubella) 87628 Given 12/12/1996 DT (Adult) 53251 Given 03/27/1988 DPT 79575 Given 11/30/1987 DPT 16190 Given 10/15/1987 DPT 74012 Given 10/14/1987 Opv (Poliovirus,Oral) 13789 Given 11/16/1985 Opv (Poliovirus,Oral) 11413 Given 10/12/1985 MMR (Measles,Mumps,Rubella) 91899 Given 05/11/1985 Opv (Poliovirus,Oral) 08299 Given 07/29/1984 Opv (Poliovirus,Oral) 29883 Refused 04/26/2019 Influenza Virus Vaccine, Quadrivalent, 3 Yr > Quad , Preserv Free 74074 Refused 03/22/2019 Influenza Virus Vaccine, Quadrivalent, 3 Yr > Quad , Preserv Free 42276 Refused 06/23/2016 Influenza Virus Vaccine, Quadrivalent, 3 Yr > Quad , Preserv Free Vital Signs Date Vital Result Comment 06/21/2019 2:58pm Weight 120.00 lb Weight 54.432 kg BP Systolic 100 mmHg BP Diastolic 60 mmHg Heart Rate 88 /min Body Temperature 98.3 F Respiratory Rate 16 /min O2 % BldC Oximetry 98 % 06/14/2019 10:24am Weight 123.00 lb Weight 55.793 kg BP Systolic 110 mmHg BP Diastolic 60 mmHg Heart Rate 82 /min Body Temperature 98.4 F Respiratory Rate 16 /min O2 % BldC Oximetry 98 % Results Test Acquired Date Facility Test Result H/L Range Note CBC Auto 03/18/2019 [facility] White Blood 6.9 10^3/ uL Normal 3.5-10.8 Diff [phone] Count Red Blood Count 4.34 10^6/uL Normal [...] Blood Cells % 0.0 Laboratory test 03/18/2019 [facility] Erythrocyte Sed 5 mm/Hr Normal 0-19 finding [phone] Rate Comp Metabolic 03/18/2019 [facility] Sodium 138 Normal 135-145 Panel [phone] mmol/L Potassium 3.4 mmol/L Low 3.5-5.0 Chloride [...] Egfr 109.2 >60 1 Laboratory test 03/18/2019 [facility] CRP High 0.35 mg/L <2.00 finding [phone] Sensitivity O P: 03/14/2019 [facility] O P: SEE RESULT 2 Giardia/Cryptos [phone] Giardia/Cryptosp BELOW por Screen or Screen Ova & Parasites 03/14/2019 [facility] Parasitic Exam, See Comment 3, 4 Full [phone] Result 1 Because ethnic data is not [...] 2 SEE RESULT BELOW Name: MARYAM KAYE Demetrius : [address]: Amie Miller 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 Director [facility] # [id number] Specimen: [id number] Collected: 03/14/19 Received: 03/14/19 (Continued) Procedure Result Reported Site O P: Giardia/Cryptospor Screen Final (continued) 03/15/191201 * [facility] - Main Lab . END OF REPORT DEPARTMENT OF PATHOLOGY, [facility] [place], [place] [address] Ovidio Gibson M.D. Director [place] # [id number] 3 5105.LOOKING FOR NAGLERIA FOWLERI 4 SOURCE: STOOL PARASITIC EXAMINATION FINAL No parasites seen. Cryptosporidium, Cyclospora, and microsporidia are not readily detected by this method. Single negative specimen does not rule out parasitic infection. Test Performed by: [place] [address] Medical Transcriber: Gee Mcclain M.D. Ph.D.; CLIA# [id number] Procedures Description No Information Available Medical Devices Description No Information Available Encounters Type Date Location Provider Dx Diagnosis Office Visit 06/14/2019 Bushra Akins M.D. J32.9 Chronic sinusitis, 10:00a unspecified Office Visit 05/26/2019 Main Office Eddie Akins M.D. J32.9 Chronic sinusitis, 4:15p unspecified Office Visit 05/12/2019 Main Office Eddie Akins M.D. J32.9 Chronic sinusitis, 11:45a unspecified Office Visit 04/26/2019 Bushra Akins M.D. J01.90 Acute sinusitis, 2:45p unspecified Office Visit 04/04/2019 Bushra Akins M.D. J32.9 Chronic sinusitis, 2:00p unspecified Office Visit 03/22/2019 Bsuhra Akins M.D. Z00.00 Encntr for general 1:15p adult medical exam w/o abnormal findings J32.9 Chronic sinusitis, unspecified Office Visit 02/21/2019 2:45p Bushra Akins S51.801D Unspecified open M.D. wound of right [...] right ear Assessments Date Code Description Provider 06/21/2019 J32.9 Chronic sinusitis, unspecified Eddie Akins M.D. 06/14/2019 J32.9 Chronic sinusitis, unspecified Eddie Akins M.D. 05/26/2019 J32.9 Chronic sinusitis, unspecified Eddie Akins M.D. 05/12/2019 J32.9 Chronic sinusitis, unspecified Eddie Akins M.D. 04/26/2019 J01.90 Acute sinusitis, unspecified Eddie Akins M.D. 04/04/2019 J32.9 Chronic sinusitis, unspecified [...] ear Eddie Akins M.D. Plan of Treatment 06/21/2019 - Eddie Akins M.D.J32.9 Chronic sinusitis, unspecifiedFollow up: Referral to [facility]. Functional Status Functional Condition Comment Date Status Soft Contacts Active Mental Status Description No Information Available Referrals Refer to Dr Reason for Referral Status Appt Date Luis Alfredo Holden Referral to Dr. Holden for further evaluation. Created - - Please contact Pt to schedule appt. Pt is currently self pay. - - Please fax appointment date/time to [facility], [phone]. [address], [place] [address] [phone]
--- OUTSIDE RECORDS SUMMARY | 2019-07-01 11:42 | XMS REPORT | Continuity of Care Document ---
:1980 External Reference #:[id number] Author Name Eddie Akins M.D. Address [address] [place] [address] Problems Description No Information Available Social History [...] Aerosol Vitamin B Complex Nasrin Gonsalves, 02/02/2012 JACKSPOOLER-C Herbal Immunity Unknown Supplement Multi Vitamin 1 by mouth every Unknown Tablets day [place] 3 1 by mouth every Unknown 1000mg [...] CPT Code Status Date Vaccine Lot # [id number] Given 03/26/2017 Tdap (Adacel) [id number] 96193 Given 11/23/2000 Meningococcal Polysaccharide Vaccine 09885 Given 01/16/2000 Varicella (Chicken Pox) Vaccine 53644 Given 01/16/2000 Hep B Vaccine, Ped/Adol Dose 3 Dose (Engerix or Recombivax) 05093 Given 02/25/1999 MMR (Measles,Mumps,Rubella) 39185 Given 12/12/1996 DT (Adult) 98044 Given 03/27/1988 DPT 02493 Given 11/30/1987 DPT 27259 Given 10/15/1987 DPT 96712 Given 10/14/1987 Opv (Poliovirus,Oral) 14071 Given 11/16/1985 Opv (Poliovirus,Oral) 90850 Given 10/12/1985 MMR (Measles,Mumps,Rubella) 50068 Given 05/11/1985 Opv (Poliovirus,Oral) 34789 Given 07/29/1984 Opv (Poliovirus,Oral) 08538 Refused 04/26/2019 Influenza Virus Vaccine, Quadrivalent, 3 Yr > Quad , Preserv Free 57252 Refused 03/22/2019 Influenza Virus Vaccine, Quadrivalent, 3 Yr > Quad , Preserv Free 90297 Refused 06/23/2016 Influenza Virus Vaccine, Quadrivalent, 3 [...] Result H/L Range Note CBC Auto 03/18/2019 [facility] White Blood 6.9 10^3/ uL Normal 3.5-10.8 Diff [phone] Count Red Blood Count 4.34 10^6/uL Normal [...] Blood Cells % 0.0 Laboratory test 03/18/2019 [facility] Erythrocyte Sed 5 mm/Hr Normal 0-19 finding [phone] Rate Comp Metabolic 03/18/2019 [facility] Sodium 138 Normal 135-145 Panel [phone] mmol/L Potassium 3.4 mmol/L Low 3.5-5.0 Chloride [...] Egfr 109.2 >60 1 Laboratory test 03/18/2019 [facility] CRP High 0.35 mg/L <2.00 finding [phone] Sensitivity O P: 03/14/2019 [facility] O P: SEE RESULT 2 Giardia/Cryptos [phone] Giardia/Cryptosp BELOW por Screen or Screen Ova & Parasites 03/14/2019 [facility] Parasitic Exam, See Comment 3, 4 Full [phone] Result 1 Because ethnic data is not [...] [address]: Amie Miller NP Acct: [id number] Unit: [id number] AGE: 38 Location: [facility] Re03/14/19 SEX: F Status: REG REF SPEC: [id number] SANDEE: 03/14/[address]: Amie Miller NP REQ: [id number] RECD: 03/14/19 STATUS: YUDI STRONG DR: Eddie [...] ON NEXT PAGE DEPARTMENT OF PATHOLOGY, [facility] [place] [address] Ovidio Gibson M.D. Director [facility] # [id number] Specimen: [id number] Collected: 03/14/19 Received: 03/14/19 (Continued) Procedure Result Reported Site O P: Giardia/Cryptospor Screen Final (continued) 03/15/191201 * ML - Main Lab . END OF REPORT DEPARTMENT OF PATHOLOGY, [facility] [address] [place], [place] [address] Ovidio Gibson M.D. Director [facility] # [id number] 7 1615.LOOKING FOR NAGLERIA FOWLERI 4 SOURCE: STOOL PARASITIC EXAMINATION FINAL No parasites seen. Cryptosporidium, Cyclospora, and microsporidia are not readily detected by this method. Single negative specimen does not rule out parasitic infection. Test Performed by: [facility] - [address] [address] Fire Behavior Analyst: Gee Mcclain M.D. Ph.D.; CLIA# [id number] Procedures Description No Information Available Medical Devices [...] Chronic sinusitis, unspecified Office Visit 02/21/2019 2:45p Thompson Tera Akins, S51.801D Unspecified open M.D. wound [...] right ear Assessments Date Code Description Provider 05/26/2019 J32.9 Chronic sinusitis, yanyified Eddie Akins M.D. 05/12/2019 J32.9 Chronic sinusitis, [...] Please fax appointment date/time to [facility], [phone]. [address], [place] [address] [phone]
--- NOTE | 2019-07-01 12:31 | ED ---
Complex/Multi-Sys Presentation - HPI Summary HPI Summary: This pt is a 38 Y/O F presenting to [facility] with a CC of a recent sinus infection that began on june 19 2019. She states that she has recently found legionella in her water and states that it has been tested and taking care of by the health department. She states that a small black parasite came out of her nose and reports that she needs a CT scan. She states that she blew her nose and the parasite came out of her nose. She reports that it came out of her R nostril. She states that she has been having nasal discharge and feeling fatigued and has had CP, SOB, a fever, and chills, for the past couple weeks. She reports holding an 8 pound weight for hours in order to prevent a syncopal episode. She denies any recent travel. She states that she has been around farm animals recently. She also reports that she had a recent tick bite on her chin. She also states that she has been having dental pain and can feel animals crawling around her ears and on her head. She also reports a delayed response due to the parasites. She denies any suicidal ideations or paranoia. Pt also denies any erythema of eyes, cough, abdominal pain, N/V, dysuria, hematuria, myalgia, edema ,rash, or dizziness. She states that she has been using vinegar on her head to avoid any more animals growing on her. She states that she has been doing anything to kill the parasites growing in her such as putting apple cider vinegar and peroxide in her ears. She states that her last known menstrual period is on time and occurs around the [place]. She states that she used to smoke marijuana but has stopped in November. She denies any SHx of drinking alcohol and smoking tobacco. She has no pertinent PMHx. - History Of Current Complaint Chief Complaint: EDGeneral Time Seen by Provider: 07/01/19 12:00 Hx Obtained From: Patient Onset/Duration: Sudden Onset, Lasting Days - 12 Timing: Constant Severity Currently: None Aggravating Factor(s): none Alleviating Factor(s): States holding an 8 pound weight helped cure her near- syncope, peroxide and apple cider vinegar flushes have cleaned out her ears and killed parasites, vinegar in hair has killed parasites. Associated Signs And Symptoms: Positive: Decreased Responsiveness, Syncope - near syncope, SOB, Chest Pain, Fever, Other - NEGATIVE: erythema of eyes, hematuria, myalgia, rash, paranoia, SI. POSITIVE: parasite came out when she blew her nose per patient. Recent tick bite. Negative: Dizziness, Cough, Edema , Nausea, Vomiting, Abdominal Pain, Dysuria - Allergies/Home Medications Allergies/Adverse Reactions: Allergies Allergy/AdvReac Type Severity Reaction Status Date / Time No Known Allergies Allergy Verified 07/01/19 11:34 Home Medications: Home Medications Amoxicillin/Clavulanate TAB* [Augmentin TAB 875*] 875 mg PO BID 07/01/19 [ History Confirmed 07/01/19] Calcium Carb/Magnesium Hydrox [Antacid Ultra Strength 1000-200 mg] 1 tab PO DAILY 07/01/19 [History Confirmed 07/01/19] Multivitamins/Minerals TAB* [Theragran/minerals TAB*] 1 tab PO DAILY 07/01/19 [ History Confirmed 07/01/19] [place]-3 Fatty Acids (Nf) [Fish Oil (NF)] 1,000 mg PO DAILY 07/01/19 [History Confirmed 07/01/19] Oregano Oil [Oil of Oregano] 1,500 mg PO DAILY 07/01/19 [History Confirmed 06/30] Parasmart 1 tab PO DAILY 07/01/19 [History Confirmed 07/01/19] Vitamin B Complex CAP* [B Complex CAP*] 1 cap PO DAILY 07/01/19 [History Confirmed 07/01/19] PMH/Surg Hx/FS Hx/Imm Hx Previously Healthy: Yes Endocrine/Hematology History: Denies: Hx Diabetes Cardiovascular History: Denies: Hx Congestive Heart Failure, Hx Hypertension, Hx Pacemaker/ICD History: Denies: Hx Renal Disease Sensory History: Reports: Hx Contacts or Glasses Denies: Hx Hearing Aid Opthamlomology History: Reports: Hx Contacts or Glasses Psychiatric History: Denies: Hx Panic Disorder - Cancer History Hx Chemotherapy: No Hx Radiation Therapy: No - Surgical History Surgical History: None - Immunization History Date of Tetanus Vaccine: unk Date of Influenza Vaccine: unk Immunizations Up to Date: Yes Infectious Disease History: No Infectious Disease History: Denies: Traveled Outside the [place] in Last 30 Days - Family History Known Family History: Positive: Hypertension, Other - Cancer - Social History Occupation: Employed Full-time, Works From/At Home Lives: Alone Alcohol Use: None Hx Substance Use: Yes Substance Use Type: Reports: Marijuana Substance Use Comment - Amount & Last Used: Quit in November Hx Tobacco Use: No Smoking Status (MU): Never Smoked Tobacco Review of Systems Positive: Fever, Chills, Fatigue Negative: Erythema Positive: Dental Pain. Negative: Sore Throat Positive: Chest Pain Positive: Shortness Of Breath. Negative: Cough Negative: Vomiting, Nausea Negative: dysuria, hematuria Negative: Myalgia, Edema Skin: Other - recent tick bite, states parasite came out when she blew her nose Neurological/Mental Status: Negative - dizziness Positive: Syncope - states near syncope Psychological: Other - NEGATIVE: paranoia, SI All Other Systems Reviewed And Are Negative: Yes Physical Exam - Summary Physical Exam Summary: Constitutional: Well-developed, Well-nourished, Alert. (-) Distressed Skin: Warm, Dry HENT: Normocephalic; TM scarring bilaterally Eyes: Conjunctiva normal Neck: Musculoskeletal ROM normal neck. (-) JVD, (-) Stridor, (-) Tracheal deviation Cardio: Rhythm regular, rate normal, Heart sounds normal; Intact distal pulses; The pedal pulses are 2+ and symmetric. Radial pulses are 2+ and symmetric. (-) Murmur Pulmonary/Chest wall: Effort normal. (-) Respiratory distress, (-) Wheezes, (-) Rales Abd: Soft, (-) tenderness, (-) Distension, (-) Guarding, (-) Rebound Musculoskeletal: (-) Edema Lymph: (-) Cervical adenopathy Neuro: Alert, Oriented x3 Psych: Mood and affect Normal Triage Information Reviewed: Yes Vital Signs On Initial Exam: Initial Vitals Temp Pulse Resp BP Pulse Ox 98.3 F 87 15 104/67 100 07/01/19 11:31 07/01/19 11:31 07/01/19 11:31 07/01/19 11:31 07/01/19 11:31 Vital Signs Reviewed: Yes Procedures - Sedation Patient Received Moderate/Deep Sedation with Procedure: No Diagnostics - Vital Signs Vital Signs Temp Pulse Resp BP Pulse Ox 07/01/19 11:31 98.3 F 87 15 104/67 100 - Laboratory Result Diagrams: 07/01/19 12:11 07/01/19 12:11 Lab Statement: Any lab studies that have been ordered have been reviewed, and results considered in the medical decision making process. - EKG 1243 Cardiac Rate: NL - 87 BPM EKG Rhythm: Sinus Rhythm ST Segment: Normal Ectopy: None Summary of EKG Findings: Normal sinus rhythm at 87 bpm, normal ME, normal QRS, normal QTc, normal axis, normal ST, normal T-waves, normal EKG. Interpreted by Dr. Rodriguez at 1245 07/01/2019. Complex Multi-Symp Course/Dx Course Of Treatment: This pt is a 38 Y/O F presenting to [facility] with a CC of a recent sinus infection that began on june 19 2019. She states that she has recently found legionella in her water and states that it has been tested and taking care of by the health department. She states that a small black parasite came out of her nose and reports that she needs a CT scan. She states that she blew her nose and the parasite came out of her nose. She reports that it came out of her R nostril. She states that she has been having nasal discharge and feeling fatigued and has had CP, SOB, a fever, and chills, for the past couple weeks. She reports holding an 8 pound weight for hours in order to prevent a syncopal episode. She denies any recent travel. She states that she has been around farm animals recently. She also reports that she had a recent tick bite on her chin. She also states that she has been having dental pain and can feel animals crawling around her ears and on her head. She also reports a delayed response due to the parasites. She denies any suicidal ideations or paranoia. Pt also denies any erythema of eyes, cough, abdominal pain, N/V, dysuria, hematuria, myalgia, edema ,rash, or dizziness. She states that she has been using vinegar on her head to avoid any more animals growing on her. She states that she has been doing anything to kill the parasites growing in her such as putting apple cider vinegar and peroxide in her ears. Her PE found that she has TM scarring bilaterally. She has no abnormalities on her labratory exams. EKG at 1243 found normal sinus rhythm at 87 bpm, normal ME, normal QRS, normal QTc, normal axis, normal ST, normal T-waves, normal EKG. Neck, the mental health dowel machine operator spoke to the patient, also with Dr. Spence. Is a patient behaviors are not immediately life-threatening, the threshold for hospital admission is not reviewed. Echo of her outpatient mental health resources. The insect presented in the tissue today was not a tick. The pt was informed not to inhale vinegar, put vinegar on her head, or use vinegar and peroxide to rinse her ear canal. She was informed that the animal presented in the tissue was not a flee today. She requested a CT scan and was informed that there were no indications for a CT scan and there was no need for the added radiation. She will be discharged home with a Dx of fatigue and paranoia. Assessment/Plan: Pattient entirely nontoxic appearing - Diagnoses Provider Diagnoses: Paranoia, Fatigue Discharge ED - Sign-Out/Discharge Documenting (check all that apply): Patient Departure - discharge - Discharge Plan Condition: Good Disposition: HOME Patient Education Materials: Paranoid Personality Disorder (ED), Fatigue (ED) Referrals: Eddie Akins MD [Primary Care Provider] - 2 Days [facility] [Outside] Additional Instructions: PLEASE FOLLOW UP WITH [facility] WITH THE PHONE NUMBER PROVIDED TO YOU. ALSO FOLLOW UP WITH YOUR PRIMARY CARE PHYSICIAN IN 1-3 DAYS AND RETURN TO THE EMERGENCY DEPARTMENT FOR ANY NEW OR WORSENING SYMPTOMS. - Attestation Statements Document Initiated by Ahmetibsally: Yes Documenting Scribe: Fredrick Gonzalez Provider For Whom Scribe is Documenting (Include Credential): Tomas Rodriguez MD Scribe Attestation: IFredrick, scribed for Tomas Rodriguez MD on 07/01/19 at 1705. Status of Scribe Document: Ready
[2019-07-01 12:33] LABS: ABS Eosinophils 0.2 10^3/ul (0-0.6); ABS Monocytes 0.4 10^3/ul (0-0.8); Hematocrit 38 % (35-47); Lymphocyte % 35.7 %; Mean Corpuscular HGB Conc 34 g/dL (31-36); Mean Corpuscular Hemoglobin 32 pg (27-31); Mean Corpuscular Volume 92 fL (80-97); Mean Platelet Volume 7.7 fL (7.4-10.4); Nucleated Red Blood Cells % 0.1; Platelet Count 234 10^3/uL (150-450); Red Blood Count 4.13 10^6 /uL (3.70-4.87); Red Cell Distribution Width 13 % (10-15); White Blood Count 5.5 10^3/uL (3.5-10.8)
[2019-07-01 12:43] LABS: Albumin 4.2 g/dL (3.2-5.2); Albumin/Globulin Ratio 1.5 (1-3); Anion Gap 6 mmol/L (2-11); BUN/Creatinine Ratio 16.9 (8-20); Blood Urea Nitrogen 12 mg/dL (6-24); CO2 Carbon Dioxide 26 mmol/L (22-32); Calcium 9.5 mg/dL (8.6-10.3); Chloride 104 mmol/L (101-111); EGFR African American 112.7 (>60); EGFR Non-African American 93.1 (>60); Globulin 2.8 g/dL (2-4); Glucose 99 mg/dL (70-100); Potassium 3.5 mmol/L (3.5-5.0); Sodium 136 mmol/L (135-145)
[2019-07-01 12:44] LABS: ALT 20 U/L (7-52); AST 21 U/L (13-39); Alkaline Phosphatase 48 U/L (34-104)
[2019-07-01 12:50] LABS: Acetaminophen < 15 mcg/mL; Alcohol < 10 mg/dL (<10); Salicylate < 2.50 mg/dL (<30)
[2019-07-01 13:04] LABS: TSH (Thyroid Stimulating Horm) 2.85 mcIU/mL (0.34-5.60)
[2019-07-01 13:26] LABS: Urine Benzodiazepine Screen None Detected (None Detect); Urine Opiates Screen None Detected (None Detect)
[2019-07-01 13:27] LABS: Urine Appearance Clear; Urine Bilirubin Negative (Negative); Urine Blood 1+ (Negative); Urine Color Straw; Urine Glucose Negative (Negative); Urine Ketones Trace (Negative); Urine Nitrite Negative (Negative); Urine Protein Negative (Negative); Urine Specific Gravity 1.006 (1.010-1.030); Urine Urobilinogen Negative (Negative)
[2019-07-01 13:31] LABS: Urine Bacteria Absent (Absent); Urine Red Blood Cell Trace(0-2/hpf) (Absent); Urine Squamous Epithelial Cell Present (Absent); Urine White Blood Cell 1+(6-10/hpf) (Absent)
[2019-07-01 16:41] VITALS: BP 111/73
--- NOTE | 2019-07-03 10:34 | ED ---
Imaging and Labs Follow Up Follow Up Type: Labs/Cultures Labs/Culture Result: Urine culture final shows positive MRSA Patient Communication/Plan: Sample likely contaminated. Patient is asymptomatic at the time of discharge. Nothing further at this time. Provider Diagnoses: Paranoia, Fatigue
--- NOTE | 2019-07-04 05:44 | ED ---
Imaging and Labs Follow Up Follow Up Type: Labs/Cultures Labs/Culture Result: Lyme screen result is positive. Patient Communication/Plan: Due to positive initial Lyme screening sample was sent to further testing for confirmation of positive result. Awaiting confirmation result. Provider Diagnoses: Paranoia, Fatigue
== END 2019-07-01 16:39 | disposition home or self-care (01) ==
LOC: ED 11:28
DX: F22 Delusional disorders (principal); R53.83 Other fatigue
CPT/HCPCS: 36415; 80053; 80307; 80320; 80329; 81003; 81015; 84443; 85025; 86617; 86618; 87077; 87086; 87186; 93005; 99284; G0480

== ENCOUNTER 2021-11-19 16:32 | Inpatient (IN) ==
[2021-11-19 18:03] LABS: ABS Eosinophils 0.1 10^3/ul (0-0.6); ABS Lymphocytes 1.4 10^3/ul (1.0-4.8); ABS Monocytes 0.5 10^3/ul (0-0.8); ABS Neutrophils 4.3 10^3/ul (1.5-7.7); Eosinophil % 0.8 %; Hematocrit 36 % (35-47); Hemoglobin 12.4 g/dL (12.0-16.0); Lymphocyte % 22.2 %; Mean Corpuscular HGB Conc 35 g/dL (31-36); Mean Corpuscular Hemoglobin 33 pg (27-31); Mean Corpuscular Volume 94 fL (80-97); Mean Platelet Volume 7.2 fL (7.4-10.4); Platelet Count 270 10^3/uL (150-450); Red Blood Count 3.76 10^6 /uL (3.70-4.87); Red Cell Distribution Width 13 % (10-15); White Blood Count 6.2 10^3/uL (3.5-10.8)
[2021-11-19 18:36] LABS: Urine Appearance Clear; Urine Color Straw; Urine Ketones Trace (Negative); Urine Urobilinogen 0.2 (Negative) (Negative); Urine pH 7.5 (5.0-9.0)
[2021-11-19 18:37] LABS: Urine Bilirubin Negative (Negative); Urine Blood Negative (Negative); Urine Glucose Negative (Negative); Urine Nitrite Negative (Negative); Urine Protein Negative (Negative)
[2021-11-19 18:41] LABS: ALT 31 U/L (7-52); AST 33 U/L (13-39); Albumin 4.1 g/dL (3.2-5.2); Albumin/Globulin Ratio 1.6 (1-3); Alkaline Phosphatase 53 U/L (35-149); Anion Gap 7 mmol/L (2-11); Blood Urea Nitrogen 8 mg/dL (6-24); CO2 Carbon Dioxide 28 mmol/L (22-32); Calcium 9.2 mg/dL (8.6-10.3); Chloride 103 mmol/L (101-111); Globulin 2.5 g/dL (2-4); Glucose 99 mg/dL (70-100); Potassium 3.9 mmol/L (3.5-5.0); Sodium 138 mmol/L (135-145); Total Protein 6.6 g/dL (6.4-8.9); eGFR CKD-EPI 116.4 (>60)
[2021-11-19 18:47] LABS: Urine Benzodiazepine Screen None Detected (None Detect); Urine Cannabinoids Screen Presumptive Positive (None Detect); Urine Opiates Screen None Detected (None Detect)
[2021-11-19 18:47] LABS: HCG Pregnancy < 0.60 mIU/mL
[2021-11-19] MEDS ORDERED: Amoxicillin/Clavul 875/125 TAB (Augmentin 875 tab) PO ONE (20:57)
[2021-11-20 02:55] LABS: Lithium < 0.10 mmol/L (0.6-1.2)
[2021-11-20] MEDS ORDERED: Nicotine GUM 2MG FRUIT FLAVOR PO PRN (03:00)
[2021-11-20] MEDS: Vitamin THERAPEUTIC TAB PO SCH (10:20)
[2021-11-20] MEDS: Silver Sulfadiazine 1% 85 GM TOPICAL SCH ×2 (12:38→19:49)
[2021-11-20] MEDS: Chlorhexidine MOUTHWASH 0.12% 15 ML UDC SWISH SPIT SCH (19:44)
[2021-11-20] MEDS: Amoxicillin/Clavul 875/125 TAB (Augmentin 875 tab) PO SCH (19:44)
[2021-11-20] MEDS ORDERED: Lithium Carb ER 300 mg TAB(NF) PO SCH (21:00)
[2021-11-21] MEDS: Amoxicillin/Clavul 875/125 TAB (Augmentin 875 tab) PO SCH ×2 (08:34→21:01)
[2021-11-21] MEDS: Vitamin THERAPEUTIC TAB PO SCH (08:35)
[2021-11-21] MEDS: Chlorhexidine MOUTHWASH 0.12% 15 ML UDC SWISH SPIT SCH ×3 (08:36→21:03)
[2021-11-21] MEDS: Silver Sulfadiazine 1% 85 GM TOPICAL SCH ×2 (08:36→21:04)
[2021-11-22] MEDS: Silver Sulfadiazine 1% 85 GM TOPICAL SCH ×2 (08:36→20:32)
[2021-11-22] MEDS: Vitamin THERAPEUTIC TAB PO SCH (08:38)
[2021-11-22] MEDS: Amoxicillin/Clavul 875/125 TAB (Augmentin 875 tab) PO SCH ×2 (08:38→20:29)
[2021-11-22] MEDS: Chlorhexidine MOUTHWASH 0.12% 15 ML UDC SWISH SPIT SCH ×3 (08:38→20:31)
[2021-11-22] MEDS: Albuterol HFA INHALER 8 gm MDI INH PRN (15:35)
[2021-11-23] MEDS: Vitamin THERAPEUTIC TAB PO SCH (08:38)
[2021-11-23] MEDS: Chlorhexidine MOUTHWASH 0.12% 15 ML UDC SWISH SPIT SCH ×3 (08:38→20:05)
[2021-11-23] MEDS: Silver Sulfadiazine 1% 85 GM TOPICAL SCH ×2 (08:38→20:06)
[2021-11-23] MEDS: Amoxicillin/Clavul 875/125 TAB (Augmentin 875 tab) PO SCH ×2 (08:38→20:05)
[2021-11-23] MEDS: Albuterol HFA INHALER 8 gm MDI INH PRN ×2 (08:42→15:00)
[2021-11-24] MEDS: Amoxicillin/Clavul 875/125 TAB (Augmentin 875 tab) PO SCH ×2 (08:16→20:35)
[2021-11-24] MEDS: Vitamin THERAPEUTIC TAB PO SCH (08:16)
[2021-11-24] MEDS: Chlorhexidine MOUTHWASH 0.12% 15 ML UDC SWISH SPIT SCH ×3 (08:18→20:35)
[2021-11-24] MEDS: Albuterol HFA INHALER 8 gm MDI INH PRN ×2 (08:18→14:31)
[2021-11-24] MEDS: Silver Sulfadiazine 1% 85 GM TOPICAL SCH ×2 (08:18→20:36)
[2021-11-25 08:33] LABS: HDL Cholesterol 106.2 mg/dL
[2021-11-25] MEDS: Amoxicillin/Clavul 875/125 TAB (Augmentin 875 tab) PO SCH ×2 (08:33→19:39)
[2021-11-25] MEDS: Vitamin THERAPEUTIC TAB PO SCH (08:34)
[2021-11-25] MEDS: Silver Sulfadiazine 1% 85 GM TOPICAL SCH ×2 (08:35→19:44)
[2021-11-25] MEDS: Chlorhexidine MOUTHWASH 0.12% 15 ML UDC SWISH SPIT SCH ×3 (08:35→19:44)
[2021-11-25] MEDS: Albuterol HFA INHALER 8 gm MDI INH PRN ×2 (08:39→14:07)
[2021-11-25] MEDS ORDERED: Paliperidone SUSTENNA 234 MG/1.5 ML IM ONE (11:00)
[2021-11-26] MEDS: Silver Sulfadiazine 1% 85 GM TOPICAL SCH ×2 (07:10→20:52)
[2021-11-26] MEDS: Chlorhexidine MOUTHWASH 0.12% 15 ML UDC SWISH SPIT SCH ×3 (07:10→20:52)
[2021-11-26] MEDS: Vitamin THERAPEUTIC TAB PO SCH (08:13)
[2021-11-26] MEDS: Amoxicillin/Clavul 875/125 TAB (Augmentin 875 tab) PO SCH ×2 (08:13→20:39)
[2021-11-26] MEDS: Albuterol HFA INHALER 8 gm MDI INH PRN ×2 (13:59→20:44)
[2021-11-26] MEDS: CMC:Lithium Carb ER 300 mg TAB(NF) PO SCH (20:39)
[2021-11-27] MEDS: Amoxicillin/Clavul 875/125 TAB (Augmentin 875 tab) PO SCH (08:46)
[2021-11-27] MEDS: Chlorhexidine MOUTHWASH 0.12% 15 ML UDC SWISH SPIT SCH ×3 (08:47→20:35)
[2021-11-27] MEDS: Vitamin THERAPEUTIC TAB PO SCH (08:47)
[2021-11-27] MEDS: Silver Sulfadiazine 1% 85 GM TOPICAL SCH ×2 (08:47→20:37)
[2021-11-27] MEDS: Albuterol HFA INHALER 8 gm MDI INH PRN ×3 (08:53→21:01)
[2021-11-27] MEDS: CMC:Lithium Carb ER 300 mg TAB(NF) PO SCH (20:31)
[2021-11-27] MEDS: Dextran 70/Hypromellose Tears Eye Drops 15 ml BTL (for Artificials Tears) BOTH EYES PRN (20:59)
[2021-11-28] MEDS: Dextran 70/Hypromellose Tears Eye Drops 15 ml BTL (for Artificials Tears) BOTH EYES PRN ×2 (07:07→15:14)
[2021-11-28] MEDS: Vitamin THERAPEUTIC TAB PO SCH (09:32)
[2021-11-28] MEDS: Chlorhexidine MOUTHWASH 0.12% 15 ML UDC SWISH SPIT SCH ×3 (09:36→20:39)
[2021-11-28] MEDS: Silver Sulfadiazine 1% 85 GM TOPICAL SCH ×2 (09:37→20:48)
[2021-11-28] MEDS: Albuterol HFA INHALER 8 gm MDI INH PRN (09:38)
[2021-11-28] MEDS: CMC:Lithium Carb ER 300 mg TAB(NF) PO SCH (20:40)
[2021-11-29] MEDS: Vitamin THERAPEUTIC TAB PO SCH (08:34)
[2021-11-29] MEDS: Chlorhexidine MOUTHWASH 0.12% 15 ML UDC SWISH SPIT SCH ×3 (08:36→20:04)
[2021-11-29] MEDS: Silver Sulfadiazine 1% 85 GM TOPICAL SCH ×2 (08:37→20:04)
[2021-11-29] MEDS: Albuterol HFA INHALER 8 gm MDI INH PRN (08:37)
[2021-11-29] MEDS ORDERED: Paliperidone SUSTENNA 156 MG/1 ML IM ONE (09:00)
[2021-11-29] MEDS: Dextran 70/Hypromellose Tears Eye Drops 15 ml BTL (for Artificials Tears) BOTH EYES PRN ×2 (09:21→18:13)
[2021-11-29] MEDS ORDERED: Senna TAB 8.6 mg TAB PO PRN (09:49)
[2021-11-29] MEDS: Fluticasone NASAL SPRAY 50MCG 16 gm SPRAY BTL BOTH NARES SCH (12:12)
[2021-11-29] MEDS: CMC:Lithium Carb ER 300 mg TAB(NF) PO SCH (20:02)
[2021-11-30] MEDS: Albuterol HFA INHALER 8 gm MDI INH PRN ×2 (08:15→20:40)
[2021-11-30] MEDS: Vitamin THERAPEUTIC TAB PO SCH (08:17)
[2021-11-30] MEDS: Fluticasone NASAL SPRAY 50MCG 16 gm SPRAY BTL BOTH NARES SCH (08:21)
[2021-11-30] MEDS: Silver Sulfadiazine 1% 85 GM TOPICAL SCH ×2 (08:21→20:41)
[2021-11-30] MEDS: Chlorhexidine MOUTHWASH 0.12% 15 ML UDC SWISH SPIT SCH ×3 (09:47→20:39)
[2021-11-30] MEDS: Dextran 70/Hypromellose Tears Eye Drops 15 ml BTL (for Artificials Tears) BOTH EYES PRN ×2 (10:06→20:30)
[2021-11-30] MEDS: CMC:Lithium Carb ER 300 mg TAB(NF) PO SCH (20:36)
[2021-12-01] MEDS: Chlorhexidine MOUTHWASH 0.12% 15 ML UDC SWISH SPIT SCH ×3 (07:59→21:22)
[2021-12-01] MEDS: Silver Sulfadiazine 1% 85 GM TOPICAL SCH ×2 (07:59→21:22)
[2021-12-01] MEDS: Fluticasone NASAL SPRAY 50MCG 16 gm SPRAY BTL BOTH NARES SCH (08:28)
[2021-12-01] MEDS: Vitamin THERAPEUTIC TAB PO SCH (08:31)
[2021-12-01] MEDS: Albuterol HFA INHALER 8 gm MDI INH PRN ×2 (08:32→22:10)
[2021-12-01] MEDS: Dextran 70/Hypromellose Tears Eye Drops 15 ml BTL (for Artificials Tears) BOTH EYES PRN (18:37)
[2021-12-01] MEDS: CMC:Lithium Carb ER 300 mg TAB(NF) PO SCH (21:21)
[2021-12-02] MEDS: Vitamin THERAPEUTIC TAB PO SCH (08:55)
[2021-12-02] MEDS: Albuterol HFA INHALER 8 gm MDI INH PRN (08:58)
[2021-12-02] MEDS: Fluticasone NASAL SPRAY 50MCG 16 gm SPRAY BTL BOTH NARES SCH (08:58)
[2021-12-02] MEDS: Chlorhexidine MOUTHWASH 0.12% 15 ML UDC SWISH SPIT SCH ×3 (08:59→20:46)
[2021-12-02] MEDS: Silver Sulfadiazine 1% 85 GM TOPICAL SCH ×2 (08:59→20:45)
[2021-12-02] MEDS: CMC:Lithium Carb ER 300 mg TAB(NF) PO SCH (20:56)
[2021-12-03] MEDS: Vitamin THERAPEUTIC TAB PO SCH (08:10)
[2021-12-03] MEDS: Albuterol HFA INHALER 8 gm MDI INH PRN ×2 (08:12→14:18)
[2021-12-03] MEDS: Dextran 70/Hypromellose Tears Eye Drops 15 ml BTL (for Artificials Tears) BOTH EYES PRN (08:13)
[2021-12-03] MEDS: Chlorhexidine MOUTHWASH 0.12% 15 ML UDC SWISH SPIT SCH ×3 (08:14→20:05)
[2021-12-03] MEDS: Silver Sulfadiazine 1% 85 GM TOPICAL SCH ×2 (08:14→21:01)
[2021-12-03] MEDS: Fluticasone NASAL SPRAY 50MCG 16 gm SPRAY BTL BOTH NARES SCH (08:14)
[2021-12-03] MEDS: Saline NASAL SPRAY 0.65% BTL BOTH NARES PRN ×2 (14:14→20:07)
[2021-12-03] MEDS: CMC:Lithium Carb ER 300 mg TAB(NF) PO SCH (20:03)
[2021-12-04] MEDS: Albuterol HFA INHALER 8 gm MDI INH PRN ×2 (09:01→20:18)
[2021-12-04] MEDS: Fluticasone NASAL SPRAY 50MCG 16 gm SPRAY BTL BOTH NARES SCH (09:01)
[2021-12-04] MEDS: Vitamin THERAPEUTIC TAB PO SCH (09:03)
[2021-12-04] MEDS: Silver Sulfadiazine 1% 85 GM TOPICAL SCH ×2 (09:05→20:16)
[2021-12-04] MEDS: Chlorhexidine MOUTHWASH 0.12% 15 ML UDC SWISH SPIT SCH ×4 (09:05→20:16)
[2021-12-04] MEDS: Magnesium Hydroxide LIQ 30 ML UDC PO PRN (18:15)
[2021-12-04] MEDS: CMC:Lithium Carb ER 300 mg TAB(NF) PO SCH (20:15)
[2021-12-04] MEDS: Saline NASAL SPRAY 0.65% BTL BOTH NARES PRN (20:19)
[2021-12-05] MEDS: Dextran 70/Hypromellose Tears Eye Drops 15 ml BTL (for Artificials Tears) BOTH EYES PRN ×2 (06:07→08:38)
[2021-12-05] MEDS: Albuterol HFA INHALER 8 gm MDI INH PRN ×2 (08:37→19:47)
[2021-12-05] MEDS: Fluticasone NASAL SPRAY 50MCG 16 gm SPRAY BTL BOTH NARES SCH (08:37)
[2021-12-05] MEDS: Chlorhexidine MOUTHWASH 0.12% 15 ML UDC SWISH SPIT SCH ×3 (08:38→21:32)
[2021-12-05] MEDS: Vitamin THERAPEUTIC TAB PO SCH (08:39)
[2021-12-05] MEDS: Silver Sulfadiazine 1% 85 GM TOPICAL SCH ×2 (08:39→21:32)
[2021-12-05] MEDS: Magnesium Hydroxide LIQ 30 ML UDC PO PRN (13:52)
[2021-12-05] MEDS: Saline NASAL SPRAY 0.65% BTL BOTH NARES PRN (18:00)
[2021-12-05] MEDS: CMC:Lithium Carb ER 300 mg TAB(NF) PO SCH (19:48)
[2021-12-06] MEDS: Fluticasone NASAL SPRAY 50MCG 16 gm SPRAY BTL BOTH NARES SCH (09:08)
[2021-12-06] MEDS: Albuterol HFA INHALER 8 gm MDI INH PRN ×2 (09:08→21:02)
[2021-12-06] MEDS: Chlorhexidine MOUTHWASH 0.12% 15 ML UDC SWISH SPIT SCH ×3 (09:09→21:02)
[2021-12-06] MEDS: Vitamin THERAPEUTIC TAB PO SCH (09:09)
[2021-12-06] MEDS: Silver Sulfadiazine 1% 85 GM TOPICAL SCH ×2 (09:11→21:01)
[2021-12-06] MEDS: Magnesium Hydroxide LIQ 30 ML UDC PO PRN ×2 (12:52→18:15)
[2021-12-06] MEDS: Saline NASAL SPRAY 0.65% BTL BOTH NARES PRN (12:52)
[2021-12-06] MEDS: CMC:Lithium Carb ER 300 mg TAB(NF) PO SCH (20:59)
[2021-12-06] MEDS: Dextran 70/Hypromellose Tears Eye Drops 15 ml BTL (for Artificials Tears) BOTH EYES PRN (23:27)
[2021-12-07] MEDS: Dextran 70/Hypromellose Tears Eye Drops 15 ml BTL (for Artificials Tears) BOTH EYES PRN ×2 (07:51→23:08)
[2021-12-07] MEDS: Vitamin THERAPEUTIC TAB PO SCH (08:46)
[2021-12-07] MEDS: Fluticasone NASAL SPRAY 50MCG 16 gm SPRAY BTL BOTH NARES SCH (08:47)
[2021-12-07] MEDS: Silver Sulfadiazine 1% 85 GM TOPICAL SCH ×2 (08:48→23:07)
[2021-12-07] MEDS: Albuterol HFA INHALER 8 gm MDI INH PRN (08:48)
[2021-12-07] MEDS: Chlorhexidine MOUTHWASH 0.12% 15 ML UDC SWISH SPIT SCH ×3 (11:02→20:05)
[2021-12-07] MEDS: Magnesium Hydroxide LIQ 30 ML UDC PO PRN (11:48)
[2021-12-07] MEDS: Saline NASAL SPRAY 0.65% BTL BOTH NARES PRN (14:01)
[2021-12-07] MEDS: Al Hydrox/Mg Hydrox/Simet LIQ 30 ML UDC PO PRN (20:05)
[2021-12-07] MEDS: CMC:Lithium Carb ER 300 mg TAB(NF) PO SCH (20:05)
[2021-12-08] MEDS: Dextran 70/Hypromellose Tears Eye Drops 15 ml BTL (for Artificials Tears) BOTH EYES PRN ×3 (02:55→23:30)
[2021-12-08] MEDS: Vitamin THERAPEUTIC TAB PO SCH (08:35)
[2021-12-08] MEDS: Albuterol HFA INHALER 8 gm MDI INH PRN ×2 (08:36→20:40)
[2021-12-08] MEDS: Fluticasone NASAL SPRAY 50MCG 16 gm SPRAY BTL BOTH NARES SCH (08:36)
[2021-12-08] MEDS: Silver Sulfadiazine 1% 85 GM TOPICAL SCH ×2 (09:33→21:59)
[2021-12-08] MEDS: Chlorhexidine MOUTHWASH 0.12% 15 ML UDC SWISH SPIT SCH ×3 (09:33→21:59)
[2021-12-08] MEDS: Saline NASAL SPRAY 0.65% BTL BOTH NARES PRN (10:00)
[2021-12-08] MEDS: Magnesium Hydroxide LIQ 30 ML UDC PO PRN (10:00)
[2021-12-08] MEDS: CMC:Lithium Carb ER 300 mg TAB(NF) PO SCH (20:37)
[2021-12-08] MEDS: Al Hydrox/Mg Hydrox/Simet LIQ 30 ML UDC PO PRN (20:39)
[2021-12-09] MEDS: Dextran 70/Hypromellose Tears Eye Drops 15 ml BTL (for Artificials Tears) BOTH EYES PRN ×2 (05:37→09:07)
[2021-12-09] MEDS: Saline NASAL SPRAY 0.65% BTL BOTH NARES PRN (05:50)
[2021-12-09] MEDS: Chlorhexidine MOUTHWASH 0.12% 15 ML UDC SWISH SPIT SCH (07:13)
[2021-12-09] MEDS: Silver Sulfadiazine 1% 85 GM TOPICAL SCH (07:13)
[2021-12-09 08:21] VITALS: BP 109/98
[2021-12-09] MEDS: Fluticasone NASAL SPRAY 50MCG 16 gm SPRAY BTL BOTH NARES SCH (09:04)
[2021-12-09] MEDS: Albuterol HFA INHALER 8 gm MDI INH PRN (09:05)
[2021-12-09] MEDS: Vitamin THERAPEUTIC TAB PO SCH (09:06)
== END 2021-12-09 12:54 | disposition home or self-care (01) | DRG 753 ==
LOC: ED 16:32 → EDHOLD 23:03 → BSU 23:09
PROVIDERS: ADMIT Psychiatry & Neurology Psychiatry; ATTEND Psychiatry & Neurology Psychiatry

== ENCOUNTER 2024-03-16 15:45 | Inpatient (IN) ==
[2024-03-16 16:58] LABS: Urine Appearance Turbid; Urine Bilirubin Negative (Negative); Urine Blood Negative (Negative); Urine Color Yellow; Urine Glucose Negative (Negative); Urine Ketones 2+ (Negative); Urine Nitrite Negative (Negative); Urine Protein 1+ (>=30 mg/dL) (Negative); Urine Urobilinogen Negative (Negative); Urine pH 5.5 (5.0-8.0)
[2024-03-16 17:00] LABS: Urine Bacteria 2+ /HPF (Absent); Urine Red Blood Cell 1+(3-5/hpf) /HPF (0-Trace); Urine Squamous Epithelial Cell Present /HPF (Absent); Urine White Blood Cell Trace(0-5/hpf) /HPF (0-Trace)
[2024-03-16] MEDS ORDERED: Al Hydrox/Mg Hydrox/Simet LIQ 30 ML UDC PO PRN (17:23)
[2024-03-16 17:38] LABS: ABS Lymphocytes 1.2 10^3/uL (1.0-4.8); ABS Monocytes 0.3 10^3/uL (0.0-0.9); ABS Neutrophils 4.2 10^3/uL (1.5-7.6); Eosinophil % 0.3 %; Hematocrit 41.7 % (35-45); Hemoglobin 13.9 g/dL (11.5-14.3); Lymphocyte % 21.5 %; Mean Corpuscular Hemoglobin 30.9 pg (27-33); Mean Corpuscular Hgb Conc 33.3 g/dL (31-36); Mean Corpuscular Volume 92.8 fL (80-97); Mean Platelet Volume 8.8 fL (7.5-11.2); Nucleated Red Blood Cells % 0.1 %/100WBC (0.0-0.8); Platelet Count 215 10^3/uL (150-450); Red Blood Count 4.49 10^6/uL (3.63-4.92); Red Cell Distribution Width 13.7 % (12-17); White Blood Count 5.7 10^3/uL (3.8-11.8)
[2024-03-16 17:53] LABS: Urine Benzodiazepine Screen None Detected (None Detect); Urine Cannabinoids Screen Presumptive Positive (None Detect); Urine Opiates Screen None Detected (None Detect)
[2024-03-16 18:07] LABS: ALT 16 U/L (7-52); AST 18 U/L (13-39); Acetaminophen < 15 mcg/mL; Albumin 4.6 g/dL (3.2-5.2); Albumin/Globulin Ratio 2.3 (1-3); Alcohol, S < 13 mg/dL (<13); Alkaline Phosphatase 36 U/L (35-149); Anion Gap 7 mmol/L (2-16); Blood Urea Nitrogen 14 mg/dL (6-24); CO2 Carbon Dioxide 24 mmol/L (22-32); Calcium 9.6 mg/dL (8.6-10.3); Chloride 106 mmol/L (101-111); Creatinine, Serum 0.68 mg/dL (0.51-0.95); Glucose 82 mg/dL (70-100); Lithium < 0.16 mmol/L (0.6-1.2); Potassium 4.2 mmol/L (3.5-5.0); Salicylate < 2.50 mg/dL (<30); Sodium 137 mmol/L (135-145); Total Bilirubin 0.7 mg/dL (0.2-1.0); Total Protein 6.6 g/dL (6.4-8.9); eGFR CKD-EPI 112.1 (>60)
[2024-03-16 18:11] LABS: HCG Pregnancy < 0.60 mIU/mL
[2024-03-18 07:51] LABS: HDL Cholesterol 73.7 mg/dL
[2024-03-22 08:15] VITALS: BP 99/45
== END 2024-03-22 12:28 | disposition home or self-care (01) | DRG 753 ==
LOC: ED 15:45 → EDHOLD 17:23 → BSU 20:48
PROVIDERS: ADMIT Psychiatry & Neurology Psychiatry; ATTEND Psychiatry & Neurology Psychiatry